=== PATIENT | male | born 2000 | race Caucasian/White ===

== ENCOUNTER 2019-08-03 11:09 | Emergency (ER) | payer SELFPAY ==
[2019-08-03 11:20] VITALS: BP 133/83
--- NOTE | 2019-08-03 11:56 | ER Document Report ---
ED Medical Screen (RME) - General Chief Complaint: Nausea/Vomiting/Diarrhea Stated Complaint: NAUSEA/VOMITING Time Seen by Provider: 08/03/19 11:52 Mode of Arrival: Ambulatory Information source: Patient Notes: 19-year-old male presented to ED for complaint of nausea and vomiting diarrhea x2 days. He is just spitting up some stomach acid but he has had 3 diarrhea stools today. He states he has not checked his fever so he does not know if he had a fever or not. He states he was smoking half pack a day but he quit a week ago. He does socially drink and use socially use pot. He does work and traveling sales. He has a history of chronic bronchitis fractured clavicle ADHD social anxiety and depression. He states his grandmother recently he got the call this morning. Friday night he was told that her kidneys were failing. I have greeted and performed a rapid initial assessment of this patient. A comprehensive ED assessment and evaluation of the patient, analysis of test results and completion of medical decision making process will be conducted by an additional ED providers. - Related Data Allergies/Adverse Reactions: No Known Allergies Allergy (Verified 08/03/19 11:52) Physical Exam - Vital signs Vitals: Temp Pulse Resp BP Pulse Ox 98.9 F 57 L 16 133/83 H 100 08/03/19 11:19 08/03/19 11:19 08/03/19 11:19 08/03/19 11:19 08/03/19 11:19 Course - Vital Signs Vital signs: Temp Pulse Resp BP Pulse Ox 98.9 F 57 L 16 133/83 H 100 08/03/19 11:19 08/03/19 11:19 08/03/19 11:19 08/03/19 11:19 08/03/19 11:19
[2019-08-03] MEDS ORDERED: NORMAL SALINE 1000 ML 1,000 ML IV ONE (11:57)
[2019-08-03] MEDS ORDERED: ONDANSETRON HCL INJ/PF 4 MG/2 ML SDV IV ONE (11:57)
[2019-08-03 12:36] LABS: ABSOLUTE EOSINOPHILS # (AUTO) 0.2 10^3/uL (0.0-0.6); ABSOLUTE LYMPHOCYTES (AUTO) 2.2 10^3/uL (0.5-4.7); ABSOLUTE MONOCYTES (AUTO) 0.7 10^3/uL (0.1-1.4); ABSOLUTE NEUT (AUTO) 6.5 10^3/uL (1.7-8.2); BASOPHILS % (AUTO) 0.4 % (0-2); EOSINOPHILS % (AUTO) 2.1 % (0-6); HEMATOCRIT 46.4 % (37.9-51.0); HEMOGLOBIN 16.1 g/dL (13.5-17.0); LYMPHOCYTES % (AUTO) 22.6 % (13-45); MEAN CORPUSCULAR HEMOGLOBIN 30.5 pg (27.0-33.4); MEAN CORPUSCULAR HGB CONC 34.8 g/dL (32.0-36.0); MEAN CORPUSCULAR VOLUME 88 fl (80-97); MONOCYTES % (AUTO) 7.3 % (3-13); PLATELET COUNT 266 10^3/uL (150-450); RED BLOOD COUNT 5.29 10^6/uL (4.35-5.55); RED CELL DISTRIBUTION WIDTH 12.9 % (11.5-14.0); SEGMENTED NEUTROPHILS % (AUTO) 67.6 % (42-78); TOTAL CELLS COUNTED % (AUTO) 100 %; WHITE BLOOD COUNT 9.6 10^3/uL (4.0-10.5)
[2019-08-03 12:40] LABS: APPEARANCE,URINE CLEAR; BILIRUBIN,URINE NEGATIVE (NEGATIVE); COLOR,URINE YELLOW; GLUCOSE, URINE NEGATIVE (NEGATIVE); KETONES,URINE NEGATIVE (NEGATIVE); PROTEIN,URINE NEGATIVE (NEGATIVE); URINE SPECIFIC GRAVITY 1.021
[2019-08-03 12:53] LABS: ALBUMIN 4.9 g/dL (3.5-5.0); ALKALINE PHOSPHATASE 60 U/L (38-126); ANION GAP 11 (5-19); ASPARTATE AMINO TRANSFERASE 30 U/L (17-59); BILIRUBIN,DIRECT 0.2 mg/dL (0.0-0.4); BILIRUBIN,TOTAL 0.9 mg/dL (0.2-1.3); BLOOD UREA NITROGEN 13 mg/dL (7-20); CALCIUM 9.9 mg/dL (8.4-10.2); CARBON DIOXIDE 29 mmol/L (22-30); CHLORIDE 101 mmol/L (98-107); GLUCOSE 84 mg/dL (75-110); POTASSIUM 4.4 mmol/L (3.6-5.0); TOTAL PROTEIN 8.2 g/dL (6.3-8.2)
[2019-08-03 13:03] LABS: URINE AMPHETAMINES SCREEN NEGATIVE; URINE BARBITURATES SCREEN NEGATIVE; URINE BENZODIAZEPINES SCREEN NEGATIVE; URINE COCAINE SCREEN NEGATIVE; URINE METHADONE SCREEN NEGATIVE; URINE PHENCYCLIDINE SCREEN NEGATIVE
--- NOTE | 2019-08-03 13:06 | ER Document Report ---
ED General - General Mode of Arrival: Ambulatory TRAVEL OUTSIDE OF THE [place] IN LAST 30 DAYS: No - HPI Onset: Just prior to arrival Onset/Duration: Sudden Quality of pain: No pain Severity: None Associated symptoms: Diarrhea, Nausea, Vomiting Exacerbated by: Denies Relieved by: Denies Similar symptoms previously: No Recently seen / treated by doctor: No <GIULIANA BENNETT JR - Last Filed: 08/03/19 13:02> <RUDOLPH REYES - Last Filed: 08/03/19 13:41> - General Chief Complaint: Diarrhea Stated Complaint: NAUSEA/VOMITING Time Seen by Provider: 08/03/19 11:52 - HPI Notes: Patient is a 19-year-old male who presents emergency department for evaluation of nausea and diarrhea. On Friday he found out that his grandmother was in failing health. On Friday he developed nausea and diarrhea. He has had 2 episodes of diarrhea in the last 24 hours. He has had nausea with some dry heaving. No fevers. He states has been having intermittent chills for months. He states that he does believe that his symptoms might be in some part psychological. He has been very upset about his grandmother, and was just notified today that she has . He states he is had some intermittent cramping abdominal pain but denies any pain at this time. He is still urinating. (RUDOLPH REYES) - Related Data Allergies/Adverse Reactions: No Known Allergies Allergy (Verified 08/03/19 11:52) Past Medical History - General Information source: Patient - Social History Smoking Status: Current Every Day Smoker Drug Abuse: Marijuana Patient has suicidal ideation: No Patient has homicidal ideation: No <GIULIANA BENNETT JR - Last Filed: 08/03/19 13:02> - General Information source: Patient <RUDOLPH REYES - Last Filed: 08/03/19 13:41> Physical Exam - Vital signs Vitals: Temp Pulse Resp BP Pulse Ox 98.9 F 57 L 16 133/83 H 100 08/03/19 11:19 08/03/19 11:19 08/03/19 11:19 08/03/19 11:19 08/03/19 11:19 Course - Laboratory Result Diagrams: 08/03/19 12:15 08/03/19 12:15 <GIULIANA BENNETT JR - Last Filed: 08/03/19 13:02> - Laboratory Result Diagrams: 08/03/19 12:15 08/03/19 12:15 <RUDOLPH REYES - Last Filed: 08/03/19 13:41> - Vital Signs Vital signs: Temp Pulse Resp BP Pulse Ox 98.9 F 57 L 16 133/83 H 100 08/03/19 11:19 08/03/19 11:19 08/03/19 11:19 08/03/19 11:19 08/03/19 11:19 - Laboratory Laboratory results interpreted by me: 08/03/19 12:07 Urine Urobilinogen 2.0 H
[2019-08-03 13:07] LABS: URINE MARIJUANA (THC) SCREEN UNCONFIRMED POSITIVE
--- NOTE | 2019-08-03 13:46 | ER Document Report ---
ED General - General Chief Complaint: Diarrhea Stated Complaint: NAUSEA/VOMITING Time Seen by Provider: 08/03/19 11:52 Mode of Arrival: Ambulatory TRAVEL OUTSIDE OF THE [place] IN LAST 30 DAYS: No - HPI Notes: Patient is a 19-year-old male who presents emergency department for evaluation of nausea and diarrhea. On Friday he found out that his grandmother was in failing health. On Friday he developed nausea and diarrhea. He has had 2 episodes of diarrhea in the last 24 hours. He has had nausea with some dry heaving. No fevers. He states has been having intermittent chills for months. He states that he does believe that his symptoms might be in some part psychological. He has been very upset about his grandmother, and was just notified today that she has . He states he is had some intermittent cramping abdominal pain but denies any pain at this time. He is still urinating. - Related Data Allergies/Adverse Reactions: No Known Allergies Allergy (Verified 08/03/19 11:52) Past Medical History - General Information source: Patient - Social History Smoking Status: Current Every Day Smoker Drug Abuse: Marijuana Family History: Reviewed & Not Pertinent Patient has suicidal ideation: No Patient has homicidal ideation: No Psychiatric Medical History: Reports: Hx Attention Deficit Hyperactivity Disorder, Hx Depression Review of Systems - Review of Systems Constitutional: See HPI Gastrointestinal: See HPI Neurological/Psychological: See HPI -: Yes All other systems reviewed and negative Physical Exam - Vital signs Vitals: Temp Pulse Resp BP Pulse Ox 98.9 F 57 L 16 133/83 H 100 08/03/19 11:19 08/03/19 11:19 08/03/19 11:19 08/03/19 11:19 08/03/19 11:19 - Notes Notes: Vital signs reviewed, please refer to chart. Head is normocephalic, atraumatic. Pupils equal round, reactive to light. Neck is supple without meningismus. Heart is regular rate and rhythm. Lungs are clear to auscultation bilaterally. Abdomen is soft, nontender, normoactive bowel sounds throughout. Extremities without cyanosis, clubbing. Posterior calves are nontender. Peripheral pulses are equal. Skin is warm and dry. Patient is awake, alert, neurological exam is nonfocal. Course - Re-evaluation Re-evalutation: 08/03/19 13:42 Patient presents emergency department for evaluation. He had laboratory investigations as ordered through triage. He is given IV fluids. The patient is vitally stable. He has no electrolyte abnormalities. My strong suspicion is that this is in fact non-infectious but secondary to his increased stress and grief at this time. I will send the patient home with Bentyl. He is given instructions on dietary changes to help with diarrhea. He is to follow-up with primary care, return to the ED with worsening or new concerning symptoms of any sort. - Vital Signs Vital signs: Temp Pulse Resp BP Pulse Ox 98.9 F 57 L 16 133/83 H 100 08/03/19 11:19 08/03/19 11:19 08/03/19 11:19 08/03/19 11:19 08/03/19 11:19 - Laboratory Result Diagrams: 08/03/19 12:15 08/03/19 12:15 Laboratory results interpreted by me: 08/03/19 12:07 Urine Urobilinogen 2.0 H Discharge - Discharge Clinical Impression: Nausea Diarrhea Qualifiers: Diarrhea type: infectious Qualified Code(s): A09 - Infectious gastroenteritis and colitis, unspecified Condition: Stable Disposition: HOME, SELF-CARE Instructions: Antinausea Medication ([facility]), Diarrhea, Nonspecific ([facility]) Additional Instructions: Rest. Stay well-hydrated. Follow-up with primary care this week. Zofran as needed for nausea, Bentyl as needed for cramping abdominal pain. Return to the emergency department if you develop worsening or new concerning symptoms of any sort. Prescriptions: Dicyclomine HCl [Bentyl 20 mg Tablet] 20 mg PO QIDP PRN #40 tablet PRN Reason: abdominal pain Ondansetron [Zofran Odt 4 mg Tablet] 1 - 2 tab PO Q4H PRN #15 tab.rapdis PRN Reason: For Nausea/Vomiting Forms: Return to Work
== END 2019-08-03 14:28 | disposition home or self-care (01) ==
LOC: ER 11:09
DX: A09 Infectious gastroenteritis and colitis, unspecified (principal); R11.0 Nausea; R68.83 Chills (without fever); F17.200 Nicotine dependence, unspecified, uncomplicated; F12.10 Cannabis abuse, uncomplicated; Z63.4 Disappearance and death of family member
CPT/HCPCS: 99284; 96361; 96374; 36415; 83690; 85025; 80053; 81001; 80307; J2405; J7030